=== PATIENT | male | born 1995 | race American Indian/Alaskan Native ===

== ENCOUNTER 2021-11-03 22:05 | Emergency (ER) | payer OTHER ==
[~2021-11-03] VITALS: Ht 182.9 cm; Wt 131.0 kg
--- NOTE | 2021-11-05 19:08 | EKG ---
[facility] [address] [facility] [place], [place] [address] Signed Sinus bradycardia Otherwise normal ECG No previous ECGs available Confirmed by JAYDON ALVAREZ MD ([id number]) on 11/05/2021 7:07:59 PM Electronically Signed By: JAYDON ALVAREZ MD 11/05/21 1908 PATIENT NAME: OTHER MEDICINE,ELBA TESFAYE Electrocardiogram DATE OF : [birth year] PHYSICIAN: JAYDON ALVAREZ MD REPORT #: [id number] REPORT IS CONFIDENTIAL AND NOT TO BE RELEASED WITHOUT AUTHORIZATION
== END 2021-11-04 12:35 | disposition home or self-care (01) ==
LOC: ED 22:05
DX: T39.1X2A Poisoning by 4-Aminophenol derivatives, intentional self-harm, initial encounter (principal); Z91.030 Bee allergy status
CPT/HCPCS: 36415; 80053; 80076; 81001; 84443; 85025; 93005; 93010; 99285-25; G0480

== ENCOUNTER 2022-10-17 01:16 | Emergency (ER) | payer OTHER ==
[~2022-10-17] VITALS: Ht 182.9 cm; Wt 149.7 kg
== END 2022-10-18 12:46 | disposition home or self-care (01) ==
LOC: ED 01:16
DX: F32.9 Major depressive disorder, single episode, unspecified (principal); Z91.030 Bee allergy status; Z20.822 Contact with and (suspected) exposure to COVID-19
CPT/HCPCS: 36415; 80053; 81003; 84443; 85025; 87502; 99285; C9803; G0480; U0003

== ENCOUNTER 2025-06-18 01:11 | Emergency (ER) | payer OTHER ==
[~2025-06-18] VITALS: Ht 182.9 cm; Wt 150.0 kg
[2025-06-18] MEDS ORDERED: LORazepam 1 MG TAB PO ONE (01:30)
[2025-06-18 01:37] LABS: BASOPHILS 0.3 % (0.2-1.2); EOSINOPHILS 0.2 % (0.8-7.0); LYMPHOCYTES 16.4 % (21.8-53.1); MCH 29.8 PG (25.7-32.2); MCHC 34.4 g/dL (32.3-36.5); MCV 86.6 fL (79.0-92.2); MONOCYTES 4.4 % (5.3-12.2); NEUTROPHILS 78.4 % (34.0-67.9); RBC 4.84 M/uL (4.63-6.08)
[2025-06-18 01:41] LABS: BLOOD/HGB, URINE NEGATIVE (Negative); KETONE, URINE TRACE (Negative); LEUK ESTERASE, URINE NEGATIVE (negative); NITRITE, URINE NEGATIVE (negative)
[2025-06-18 01:54] LABS: AMPHETAMINES, URINE NEGATIVE (NEGATIVE); BARBITURATES, URINE NEGATIVE (NEGATIVE); BENZODIAZEPINE, URINE NEGATIVE (NEGATIVE); CANNABINOID, URINE POSITIVE (NEGATIVE); COCAINE, URINE NEGATIVE (NEGATIVE); ECSTASY, URINE NEGATIVE (NEGATIVE); FENTANYL, URINE NEGATIVE (NEGATIVE); METHADONE, URINE NEGATIVE (NEGATIVE); OPIATES, URINE NEGATIVE (NEGATIVE); OXYCODONE, URINE NEGATIVE (NEGATIVE); PHENCYCLIDINE, URINE NEGATIVE (NEGATIVE)
[2025-06-18 02:07] LABS: ALCOHOL, MEDICAL <3 ng/dL (<3); ALT (SGPT) 24 U/L (14-59); AST (SGOT) 17 U/L (15-37); GLOMERULAR FILTRATION RATE,EST 126 mL/min (>60); PROTEIN, TOTAL 7.8 g/dL (6.4-8.2); TSH, 3RD GENERATION 2.207 uIU/mL (0.358-3.740); UREA NITROGEN 13 mg/dL (7-18)
[2025-06-18 03:56] VITALS: BP 141/87
== END 2025-06-18 03:56 | disposition home or self-care (01) ==
LOC: ED 01:11
PROVIDERS: Family Medicine
DX: F41.9 Anxiety disorder, unspecified (principal); Z91.030 Bee allergy status
CPT/HCPCS: 36415; 70450; 80053; 80307; 81003; 84443; 85025; 99284-25; A9270-GY; G0480